=== PATIENT | female | born 1970 | race Caucasian/White ===

== ENCOUNTER → 2021-01-29 | Outpatient (CLI) | payer BC ==
--- NOTE | 2021-01-29 14:27 | RAD ---
Study: BILATERAL SCREENING MAMMOGRAM History: Routine screening. Comparison: None. Technique: Routine 2D and 3D tomosynthesis digital mammogram views were obtained bilaterally. Interpr etation was assisted with the use of computer-aided detection. Findings: Breast Tissue Density C : The breasts are heterogeneously dense, which may obscure small masses. There are no dominant masses, suspicious microcalcifications, or architectural distortion. IMPRESSION: No mammographic evidence of malignancy. Recommend routine screening mammography in one year. BI-RADS category 1: Negative. Patient information is entered into the reminder system with a target due date for the next screening mammogram. "Our facility is accredited by the [employer] Mammography Program." Electronically signed by: JNAICE YOUNG MD (01/29/2021 2:25 PM) [id number]
== END ==
LOC: MAMMO 08:50
PROVIDERS: ATTEND Obstetrics & Gynecology
DX: Z12.31 Encounter for screening mammogram for malignant neoplasm of breast (principal)
CPT/HCPCS: 77067

== ENCOUNTER → 2021-02-10 | Outpatient (CLI) | payer BC ==
[2021-02-10 16:39] LABS: BASO % 0 % (0-3); EOS # 0.1 x10^3/uL (0.0-0.7); EOS % 1 % (0-3); HEMATOCRIT 42.4 % (36.0-47.0); HEMOGLOBIN 14.1 g/dL (12.0-15.5); LYMPH # 2.9 x10^3/uL (1.0-4.8); LYMPH % 28 % (24-48); MEAN CORPUSCULAR HEMOGLOBIN 32 pg (25-35); MEAN CORPUSCULAR HGB CONC 33 g/dL (31-37); MEAN CORPUSCULAR VOLUME 96 fL (79-100); MONO # 1.1 x10^3/uL (0.0-1.1); MONO % 11 % (0-9); NEUT # 6.2 x10^3uL (1.8-7.7); NEUT % 60 % (31-73); PLATELET COUNT 263 x10^3/uL (140-400); RED BLOOD COUNT 4.41 x10^6/uL (3.50-5.40); RED CELL DISTRIBUTION WIDTH 13.6 % (11.5-14.5); WHITE BLOOD COUNT 10.4 x10^3/uL (4.0-11.0)
[2021-02-10 16:56] LABS: ALBUMIN 3.9 g/dL (3.4-5.0); ALBUMIN/GLOBULIN RATIO 1.3 (1.0-1.7); CALCIUM 8.5 mg/dL (8.5-10.1); CREATININE 0.9 mg/dL (0.6-1.0); GFR 66.3; POTASSIUM 3.7 mmol/L (3.5-5.1); TOTAL BILIRUBIN 0.5 mg/dL (0.2-1.0); TOTAL PROTEIN 6.9 g/dL (6.4-8.2)
[2021-02-12 00:07] LABS: HEMOGLOBIN A1C 5.4 % (4.8-5.6)
== END ==
LOC: LAB 15:43
PROVIDERS: ATTEND Nurse Practitioner Women's Health
DX: Z01.419 Encounter for gynecological examination (general) (routine) without abnormal findings (principal); R53.83 Other fatigue
CPT/HCPCS: 36415; 80053; 82607; 83036; 83921; 84443; 85025